=== PATIENT | male | born 1935 | race Caucasian/White ===

== ENCOUNTER → 2016-11-06 19:49 | Outpatient (CLI) | payer MEDICARE, OTHER | END | disposition home or self-care (01) | LOC: D.SLEEP 19:49 | DX: G47.33 Obstructive sleep apnea (adult) (pediatric) (principal) ==

== ENCOUNTER → 2016-11-26 19:21 | Outpatient (CLI) | payer MEDICARE, OTHER | END | disposition home or self-care (01) | LOC: D.SLEEP 19:21 | DX: G47.33 Obstructive sleep apnea (adult) (pediatric) (principal) ==

== ENCOUNTER 2019-11-30 11:03 | Outpatient (CLI) | payer OTHER ==
[~2019-11-30] VITALS: Ht 180.3 cm; Wt 126.4 kg
--- NOTE | ~2019-11-30 | HEMODYNAMI ---
PATIENT:LETHA DEL TORO MEDICAL RECORD: [id number] : 39 LOCATION:DShi[facility] ADMISSION DATE: 11/30/19 Generatedon:11/30/201914:56 Patient name: LETHA DEL TORO Patient #: [id number] SSN: : Date of study: 11/30/2019 Page: Of Hemodynamic Procedure Report Patient Data Patient Demographics Procedure consent was obtained First Name: LETHA Gender: Male Last Name: KATEY : 1935 Patient #: [id number] Age: 84 year(s) Race: Unknown Additional ID: [id number] Contact details Address: [address] [place] [address] [place] State: [place] City: [place] Zip code: [address] Past Medical History Allergies: No known allergies Admission Admission Data Admission Date: 11/30/2019 Admission Time: 11:03 Arrival Date: 11/30/2019 Arrival Time: 0:00 Admit Source: Other Insurance Payor: Private health insurance [facility] #: [id number] Height (in.): 70.87 BSA: 2.42 (m2) Height (cm.): 180 BMI: 38.89 (kg/m2) Weight (lbs.): 277.78 Weight (kg.): 126 Lab Results Lab Result Date: 11/30/2019 Lab Result Time: 0:00 Biochemistry Name Units Result Min Max BUN mg/dl 19 --(----)*- 7 18 Creatinine mg/dl 1.2 --(---*)-- 0.6 1.3 eGFR ml/min 61.89820 *-(----)-- 90 120 NONAFRICAN CBC Name Units Result Min Max Hematocrit % 41.2 -*(----)-- 42 54 Hemoglobin g/dl 13.5 --(*---)-- 13.5 17.5 Procedure Procedure Types Cath Procedure Diagnostic Procedure PPM/ICD Permanent Pacer Generator Exg. Sedation Charges Moderate Sedation up to 15 minutes Procedure Description Procedure Date Procedure Date: 11/30/2019 Procedure Start Time: 14:33 Procedure End Time: 14:55 Procedure Staff Name Function Addison Bolanos MD Performing Physician Gilles Heard MD Assisting physician Gabi Flores RT Scrub Gay Levin RN Nurse Ria Ortiz RN Assistance Representative Jessi Lew RT Monitor Procedure Data Cath Procedure Estimated blood loss: 10 ml Procedure Complications No complications Procedure Medications Medication Administration Route Dosage Oxygen etCO2 Nasal cannula 2 l/min Lidocaine 1% added to field 20 Ancef Irrigation Topical 1 g (1gm/500ml NS) Ancef (1Gm/50ml NS) I.V.P.B 1 g 0.9% NaCl I.V. Versed I.V. 2 mg Fentanyl I.V. 100 mcg Versed I.V. 1 mg Fentanyl I.V. 50 mcg Versed I.V. 1 mg Fentanyl I.V. 50 mcg Hemodynamics Rest BSA: 2.42 (m2) HGB: 13.5 (g/dl) O2 Consumption: Estimated: 271.26 (ml/min) O2 Co nsumption indexed: Estimated:112.09 (ml/min/m) Heart Rate: 65 (bpm) Snapshots Pre Cath Intra NCS Post Cath Vital Signs Time Heart Resp SPO2 etCO2 NIBP (mmHg) Rhythm Pain Sedation Rate (ipm) (%) (mmHg) Status Level (bpm) 14:04:37 65 14 97 29.1 158/94(120) Paced (Missing) 10(A) 14:08:53 79 13 96 25.4 141/80(104) Paced (Missing) 10(A) 14:13:09 65 12 94 28.4 131/79(104) Paced (Missing) 10(A) 14:17:25 65 14 94 13.4 125/77(105) Paced (Missing) 10(A) 14:21:39 65 16 96 29.1 128/83(109) Paced (Missing) 10(A) 14:25:55 65 12 94 1.4 126/81(104) Paced (Missing) 10(A) 14:30:05 65 13 93 0 124/82(101) Paced (Missing) 10(A) 14:34:21 65 14 95 2.2 128/78(97) Paced (Missing) 9(A) 14:38:25 169 17 95 2.2 105/74(83) Paced (Missing) 9(A) 14:42:33 60 19 94 31.4 112/76(101) Paced (Missing) 9(A) 14:47:26 65 18 95 39.6 118/75(89) Paced (Missing) 9(A) 14:51:48 74 17 95 2.2 73/51(62) Paced (Missing) 10(A) Medications Time Medication Route Dose Verified Delivered Reason Notes Effectiv eness by by 13:53:46 Oxygen etCO2 2 Addison Vangieie used for Nasal l/min [facility] Levin RN procedure cannula 13:54:00 Lidocaine added 20ml Addison Campoverde for local 1% to vial [facility] Heard MD anesthetic field x 2 13:54:14 Ancef Topical 1 g Addison Recinosian used for Irrigation [facility] Robles Heard MD procedure (1gm/500ml NS) 13:54:22 Ancef I.V.P.B 1 g Addison Campoverde used for (1Gm/50ml [facility] Heard MD procedure NS) 13:54:34 0.9% NaCl I.V. kvo Addison Rashid Per ml/hr [facility] Robles Levin RN physician 14:30:04 Versed I.V. 2 mg Addison Vencesie for [facility] Robles Levin RN sedation 14:30:11 Fentanyl I.V. 100 Addison Buffie for [facility] [place] [facility] Robles Levin RN sedation 14:37:55 Versed I.V. 1 mg Addison Vencesie for [facility] Robles Levin RN sedation 14:38:00 Fentanyl I.V. 50 Addison Rashid for [facility] Robles Levin RN sedation 14:49:10 Versed I.V. 1 mg Addison Vencesie for St Robles Levin RN sedation 14:49:13 Fentanyl I.V. 50 Addison Vencesie for [facility] Robles Levin RN sedation Procedure Log Time Note 13:45:10 Ria Ortiz RN sent for patient. Start room use. 13:45:35 Informed consent obtained and on chart 13:51:33 Procedure Status Elective Heart Cath (OP). 13:52:17 Time tracking: Regular hours (M-F 7:00 - 5:00) 13:52:19 Plan of Care:Hemodynamics will remain stable., Cardiac rhythm will remain stable., Comfort level will be maintained., Respiratory function will remain adequate., Patient/ family verbilizes understanding of procedure., Procedure tolerated without complication., Recovers from procedure without complications.. 13:53:43 Patient allergic to No known allergies 13:53:46 Oxygen 2 l/min etCO2 Nasal cannula was administered by Gay Levin RN; used for procedure; Verbal order read back and verified. 13:53:50 H&P Date Dictated: 11/22/2019 Within 30 days and on chart., H&P Addendum completed by physician on day of procedure. (MUST COMPLETE FOR ALL OUTPATIENTS). 13:54:00 Lidocaine 1% 20ml vial x 2 added to field was administered by Gilles Heard MD; for local anesthetic; Verbal order read back and verified. 13:54:14 Ancef Irrigation (1gm/500ml NS) 1 g Topical was administered by Gilles Heard MD; used for procedure; Verbal order read back and verified. 13:54:22 Ancef (1Gm/50ml NS) 1 g I.V.P.B was administered by Gilles Heard MD; used for procedure; Verbal order read back and verified. 13:54:34 0.9% NaCl kvo ml/hr I.V. was administered by Gay Levin RN; Per physician; Verbal order read back and verified. 13:54:49 Lab Result : BUN 19 mg/dl 13:54:49 Lab Result : Creatinine 1.2 mg/dl 13:54:49 Lab Result : eGFR NONAFRICAN 61.12330 ml/min 13:54:49 Lab Result : Hemoglobin 13.5 g/dl 13:54:49 Lab Result : Hematocrit 41.2 % 13:56:14 Patient received from Pre/Post Procedure Room to [facility] 3 Alert and oriented. Tansferred to table in Supine position. 13:56:15 Warm blankets applied, and chula hugger turned on for patient comfort. 13:56:15 Correct patient and procedure confirmed by team. 13:56:15 ECG and BP/O2 sat monitors applied to patient. 13:59:58 Patient Height : 70.87 inches 14:00:01 Patient Weight : 277.78 lbs 14:00:06 Pre-procedure instructions explained to patient. 14:00:07 Pre-op teaching completed and patient verbalized understanding. 14:00:08 Family in patients room. 14:00:09 Patient NPO since Midnight. 14:00:11 Is the patient allergic to Iodine/contrast media? No. 14:00:29 Previous problem with sedation/anesthesia? No ? 14:00:30 Snore? Yes 14:00:35 Sleep apnea? Yes 14:00:37 Deviated septum? No 14:00:38 Opens mouth fully? Yes 14:00:40 Sticks out tongue? Yes 14:00:44 Patient diabetic? No. 14:00:49 Airway obstruction? No ? 14:00:54 Is patient on blood thinner?Yes 14:01:18 LAST DOSE OF COUMADIN ON SAT. 11.27.19 14:01:23 Dentures? No ? 14:01:56 Patient pain scale 0/10 ?. 14:02:04 IV patent on arrival in right antecubital with 0.9% NaCl at [facility]. 14:02:10 Lab results completed and on chart. 14:02:16 Left chest area was prepped with chlora-prep and draped in sterile fashion 14:02:17 Alarms reviewed by R. N. 14:02:17 Sharps counted by scrub and verified by R.N. 14:03:23 Medtronic traveling representative WILBERT JORDAN present for procedure. 14:03:27 Vital chart was started 14:03:29 Baseline sample Acquired. 14:03:34 Rhythm: sinus rhythm 14:03:35 Full Disclosure recording started 14:04:13 Use device set MEMO PPM 14:04:15 2-0 Ticron Multipack ([id number]) opened to sterile field. 14:04:15 3-0 Vicryl Single Pack [id number] opened to sterile field. 14:04:15 5-0 Monocryl PS2 [id number] opened to sterile field. 14:04:16 Cautery Tip Applications Tester opened to sterile field. 14:04:19 Cautery Pushbutton Pencil opened to sterile field. 14:07:27 Arrival Date: 11/30/2019 12:00:00 AM 14:07:28 Admit Source: Other 14:07:34 Insurance Payor : Private health insurance 14:12:[address] Generator [id number] opened to sterile field. 14:29:35 --------ALL STOP TIME OUT------ 14:29:36 Final Timeout: patient, procedure, and site verified with staff and physician. All members of the team are in agreement. 14:29:44 Left chest site verified by team. 14::49 Fire Safety Assessment: A--An alcohol-based skin anteseptic being used preoperatively., C--Open oxygen or nitrous oxide is being used., D--An ESU, laser, or fiber-optic light is being used. 14:29:53 Physical assessment completed. ASA score P 2 - A patient with mild systemic disease as per Addison Bolanos MD. 14:29:58 Sedation plan: IV Moderate Sedation Medication:Versed, Fentanyl 14:30:04 Versed 2 mg I.V. was administered by Gay Levin RN; for sedation; Verbal order read back and verified. 14:30:11 Fentanyl 100 mcg I.V. was administered by Gay Levin RN; for sedation; Verbal order read back and verified. 14:32:27 Procedure started. 14:32:54 Quick Combo opened to sterile field. 14:33:15 Pre sharps counted by scrub and verified by RN: Sutures: 7; Sponges: 5; Stick needles: 2; Skin needles: 2; Blade: 1; Cautery: 1 14:33:32 Grounding pad site Left thigh. 14:33:36 Grounding pad site free from injury. 14:33:43 Lidocaine 1% was administered to left subclavicular area by Gilles Heard MD . 14:35:17 Incision made to left subclavicular area. 14:37:14 Generator pocket made/opened. 14:37:55 Versed 1 mg I.V. was administered by Gay Levin RN; for sedation; Verbal order read back and verified. 14:38:00 Fentanyl 50 mcg I.V. was administered by Gay Levin RN; for sedation; Verbal order read back and verified. 14:44:45 PPM Dual was removed.. 14:44:47 Device pocket was irrigated with Ancef. 14:45:32 PPM Dual was attached to lead(s) and inserted into pocket. 14:46:54 Ventricular lead attachment was completed with 2-0 ticron. 14:47:02 Subcutaneous closure was completed with 3-0 vicryl. 14:47:55 Atrial lead attachment was completed with 2-0 ticron. 14:47:59 Generator was sutured in place with 2-0 ticron. 14:48:19 Skin closure was completed with 5-0 monocryl. 14:49:10 Versed 1 mg I.V. was administered by Gay Levin RN; for sedation; Verbal order read back and verified. 14:49:13 Fentanyl 50 mcg I.V. was administered by Gay Levin RN; for sedation; Verbal order read back and verified. 14:51:58 Lt Chest incision was dressed with Mepilex dressing. 14:52:02 Procedure ended.(Physican Out) 14:52:25 Sharps counted by scrub and verified by R.N. 14:52:36 Post-procedure physical assessment completed. ASA score P 2 - A patient with mild systemic disease as per Addison Bolanos MD. 14:52:41 Post procedure rhythm: unchanged. 14:52:45 Estimated blood loss: 10 ml 14:52:47 Post procedure instruction explained to patient.Patient verbalizes understanding. 14:52:48 Patient needs reinforcement of post procedure teaching. 14:53:10 Procedure type changed to Cath procedure, Diagnostic procedure, PPM/ICD, Permanent Pacer Generator Exg., Sedation Charges, Moderate Sedation up to 15 minutes 14:53:16 Procedure Complication : No complications 14:53:22 Operative report dictated upon procedure completion. 14:53:23 See physician's report for complete and final results. 14:53:26 Report given to Pre/Post Procedure Room. 14:53:34 Patient transfered to Pre/Post Procedure Room with Stretcher. 14:55:03 Procedure and supply charges have been captured, reviewed, submitted and are correct. 14:55:14 Procedure ended. 14:55:14 Full Disclosure recording stopped 14:55:22 End room use (Document Last) 14:55:33 End room use (Document Last) 14:55:56 End room use (Document Last) 14:56:19 Vital chart was stopped Device Usage Item Name Manufacture Quantity Catalog Hospital Part Current Mini mal Lot# / Number Charge Number Stock Stock Serial# Code 2-0 Ticron Ethicon 6 [id number] 5 Multipack ([id number]) 3-0 Vicryl Ethicon 1 [id number] [id number] [id number] 5 Single Pack [id number] 5-0 Monocryl Ethicon 1 [id number] [id number] [id number] 5 PS2 [id number] Cautery Tip Microtek 1 [id number] [id number] 137504 5 Applications [employer] Cautery Microtek 1 [id number] 314555 94864 [id number] 5 Pushbutton [employer] Inc[employer] Pencil Medtronic Medtronic 1 [id number] [id number] EXP: Generator 05/02/2021 [id number] [employer] 1 [id number] [id number] [id number] 5 Signature Audit [place] Stage Time Signature Unsigned Intra-Procedure 11/30/2019 Jessi Lew 2:55:33 PM RT(R) Intra-Procedure 11/30/2019 Gay Levin RN 2:55:56 PM Intra-Procedure 11/30/2019 Addison Celis 2:56:17 PM [place] [id number] [place] [id number]
--- NOTE | ~2019-11-30 | OP ---
PATIENT NAME: LETHA DEL TORO MEDICAL RECORD: [id number] :37 LOCATION:D.CAT ADMISSION DATE: SURGEON: GILLES HAMPTON MD DATE OF OPERATION: 11/30/2019 PREOPERATIVE DIAGNOSES: 1. End-of-life pacemaker generator. 2. Atrial fibrillation. 3. Hypertension. POSTOPERATIVE DIAGNOSES: 1. End-of-life pacemaker generator. 2. Atrial fibrillation. 3. Hypertension. PROCEDURE: Left subclavian vein dual lead pacemaker generator exchange. SURGEON: Gilles Hampton MD REPORT OF PROCEDURE: The patient's left chest was prepped and draped in sterile fashion. A 20 mL of 1% lidocaine with epinephrine was infused into the surrounding tissues. The previous incision on the left superior chest was opened up using sharp dissection and electrocautery was used to dissect through the subcutaneous tissues to the indwelling pacemaker. This pacemaker was eviscerated through the wound. The leads were dissected loose until those easily eviscerated through the wound. The patient had wanted a deeper pocket because the pacemaker corner was poking out at the shoulder. I opened up the pocket and extended this inferiorly over the pectoralis musculature. With this new pocket in place, we were able to place the pacemaker generator down deeper on to the chest where it was away from the thin skin of the shoulder. We then disconnected the leads from the indwelling pacemaker and placing the pacemaker on them without complications. The generator was placed into the subcutaneous pouch and sutured to the pectoral fascia using a single interrupted 2-0 TiCron. The wound bed was irrigated out with antibiotic solution. The subcutaneous tissues were reapproximated with interrupted 3-0 Vicryl and the skin was closed with running subcutaneous 5-0 Monocryl. COMPLICATIONS: None. CONDITION: Stable. ANESTHESIA: Local MAC. BLOOD LOSS: Minimal. TRANSINT:[id number] Voice Confirmation ID: [id number] DOCUMENT ID: [id number] OPERATIVE REPORT [id number] KATEYGILLES RODRIGUES MD CC: NATI SINGER MD and MINA ROBERTS MD [id number] DICTATION DATE: 11/30/19 1456 ENGINEERING PRODUCTION LIAISON: 11/30/19 2332 DEP CLI 11/30/19 [facility] [address] [place] [address]
[~2019-11-30 11:03] MED LIST: CENTRUM MEN'S1 EACH PO; FLOMAX0.4 MG PO; JANTOVEN5 MG PO; LIPITOR40 MG PO; MAGNESIUM OXID250 MG PO; OXYBUTYNIN CHLOR5 MG PO; TOPROL XL50 MG PO; VITAMIN B-122500 MCG PO
[2019-11-30 11:31] VITALS: BP 141/81; Ht 180.3 cm; Wt 126.4 kg
[2019-11-30 11:45] LABS: HEMATOCRIT 41.2 % (42.0-54.0); HEMOGLOBIN 13.5 g/dL (13.5-17.5); MCH 29.9 pg (26.0-34.0); MCHC 32.8 g/dL (31.0-37.0); MCV 91.2 fL (80.0-100.0); MEAN PLATELET VOLUME 10.1 fL (7.4-10.4); RBC 4.52 10x6/uL (4.20-6.10); RDW 15.7 % (11.5-14.5); WBC 8.2 10x3/uL (4.8-10.8)
[2019-11-30 11:54] LABS: ANION GAP 10.3 mmol/L (8-16); CALCIUM 8.5 mg/dL (8.5-10.1); CARBON DIOXIDE 30.4 mmol/L (21.0-32.0); CREATININE - SERUM 1.2 mg/dL (0.6-1.3); POTASSIUM - SERUM 4.7 mmol/L (3.5-5.1)
[2019-11-30 12:01] LABS: APTT 31.3 SECONDS (22.8-39.4); INR 1.18 (0.85-1.17); PROTIME 14.9 SECONDS (11.6-15.0)
[2019-11-30] MEDS ORDERED: HYDROCODON-ACE1 EA10 PO (14:58)
--- NOTE | 2019-11-30 15:20 | NUR ---
PT RECEIVED VIA STRETCHER FROM TRANSIT VEHICLE INSPECTOR POST GEN EXCHANGE. PT AWAKE AND ALERT, DENIES PAIN OR DISCOMFORT. MEDIPLEX DRESSING TO U L CHEST, CDI. PT PLACED ON CARDIAC MONITORS . HR PACED AT 61, BP 127/62, RR 13. IV INFUSING VIA ORDERS. SANDWICH AND DRINK SERVED, CALL LIGHT IN REACH. AT BS.
--- NOTE | 2019-11-30 15:45 | NUR ---
PT SITTING UP VISING W . TOLERATED LUNCH AND DRINK W/O NAUSEA. DRESSING TO U CHEST CDI. PT DENIES PAIN OR NEEDS. VSS. CALL LIGHT IN REACH
--- NOTE | 2019-11-30 16:21 | NUR ---
DISCHARGE INSTRUCTIONS REVIEWED W PT AND , BOTH VERBALIZED UNDERSTANDING. L UPPER CHEST DRESSING CDI. IV REMOVED W CATH INTACT, MONITORS REMOVED. PT UP TO DRESS FOR DISCHARGE
--- NOTE | 2019-11-30 16:32 | NUR ---
PT DISCHARGED VIA WC TO WAITING IN PRIVATE VEHICLE. PT HAD ALL BELONGINGS AND DISCHARGE PAPERWORK
== END 2019-11-30 16:30 | disposition home or self-care (01) ==
LOC: D.CATH 11:03
PROVIDERS: ATTEND Internal Medicine Interventional Cardiology
DX: I48.0 Paroxysmal atrial fibrillation (principal); Z45.010 Encounter for checking and testing of cardiac pacemaker pulse generator [battery]; I10 Essential (primary) hypertension; I49.5 Sick sinus syndrome

== ENCOUNTER 2019-12-01 06:50 | Inpatient (IN) | payer OTHER ==
[2019-11-29 12:38] LABS: BASOPHILS 0.4 % (0-2); HEMATOCRIT 41.7 % (42.0-54.0); HEMOGLOBIN 13.7 g/dL (13.5-17.5); IMMATURE GRANULOCYTES 0.1 % (0-5); LYMPHOCYTES 40.9 % (15-50); MCHC 32.9 g/dL (31.0-37.0); MCV 91.2 fL (80.0-100.0); MEAN PLATELET VOLUME 10.1 fL (7.4-10.4); MONOCYTES 12.1 % (2-11); NEUTROPHILS 42.5 % (40-80); PLATELET COUNT 184 10x3/uL (130-400); RBC 4.57 10x6/uL (4.20-6.10); RDW 15.6 % (11.5-14.5); WBC 9.1 10x3/uL (4.8-10.8)
[2019-11-29 12:47] LABS: CALC OSMOLALITY 278 mosm/kg (275-300); CALCIUM 8.7 mg/dL (8.5-10.1); CARBON DIOXIDE 29.5 mmol/L (21.0-32.0); CHLORIDE - SERUM 106 mmol/L (98-107); GLUCOSE 83 mg/dL (74-106); POTASSIUM - SERUM 4.6 mmol/L (3.5-5.1); SODIUM 139 mmol/L (136-145); UREA NITROGEN 17 mg/dL (7-18); eGFR NON AFRICAN AMERICAN 76 mL/min (90-120)
[2019-11-29 12:50] LABS: APTT 31.5 SECONDS (22.8-39.4); INR 1.24 (0.85-1.17); PROTIME 15.5 SECONDS (11.6-15.0)
[2019-12-01] VITALS (11 sets, daily range): BP systolic 112–147; BP diastolic 60–81; BMI 38.9; BMI 38.8
[~2019-12-01] VITALS: Ht 180.3 cm; Wt 126.1 kg
[~2019-12-01 06:50] MED LIST changes: +HYDROCODON-ACE1 EA10 PO
--- NOTE | 2019-12-01 13:41 | NUR ---
1330 KEELEY DRAIN EMPTIED 50ML
--- NOTE | 2019-12-01 13:47 | NUR ---
1345 NO ORDERS NOTED FOR INPATIENT. PROCESSING INSPECTOR CALLED FOR ADMIT ORDERS. DRESSING TO LEFT UPPER CHEST
--- NOTE | 2019-12-01 14:14 | NUR ---
1415 REPORT GIVEN TO [facility]ON [facility] RONIT.
--- NOTE | 2019-12-01 14:58 | NUR ---
1450 WHILE TURNING PT IN BED FROM STRETCHER TO BED PT HAS A DIME SIZE STAGE 2 DIME SIZE OPEN WOUND TO RIGHT BUTTOCKS. NURSE IN ROOM NOTED IT. PT ASSISTED IN BED WITH A SLIDING BOARD CAREFUL NOT TO USE LEFT ARM. PT TOLERATED WELL. TOMPKINS TO GRAVITY AND O2 PER NC 4 LITERS.
--- NOTE | 2019-12-01 23:38 | NUR ---
rec'd walking rounds chge. of shift in bed supine position.abdomen lge and distended.midline drsg.,right and left abd with ghazal drain intact day patent draining antonia colored urine.scd's in place. will continue to monitor for any chges in current status and follow current plan of care
[2019-12-02] VITALS: BP 128/67
[2019-12-02 04:00] VITALS: BP 138/74
--- NOTE | 2019-12-02 08:54 | CN ---
PATIENT NAME:LETHA DEL TORO MEDICAL RECORD: [id number] : 39 LOCATION:D.MS [id number] ADMIT DATE: ACCOUNT: [id number] CONSULTING PHYSICIAN: NATI SINGER MD REFERRING PHYSICIAN: TYREE ARANDA MD DATE OF CONSULTATION: 12/01/2019 REQUESTING PHYSICIAN: Dr. Aranda. REASON FOR CONSULTATION: Medical management. HISTORY OF PRESENT ILLNESS: This is an 84-year-old white male who underwent a right hemicolectomy on 08/26/2019 in [facility] in [place] for colon adenocarcinoma. The patient has had a ventral hernia since then. He was referred to Dr. Aranda. He is now admitted and has undergone an open non-incarcerated ventral incisional hernia repair with mesh earlier today. PAST MEDICAL AND SURGICAL HISTORY: Hypertension, hyperlipidemia, diet-controlled diabetes, paroxysmal atrial fibrillation, Gilbert's syndrome, BPH, overactive bladder, coronary artery disease, iron deficient anemia, adenocarcinoma of the colon. PAST SURGICAL HISTORY: Right hemicolectomy on 08/26/2019, pacemaker placement, tonsillectomy, right inguinal hernia repair, and right total knee arthroplasty. DRUG ALLERGIES: None known. HOME MEDICATIONS: Tamsulosin 0.4 mg once a day. He takes warfarin daily. He takes metoprolol succinate 50 mg one half daily, atorvastatin 40 mg daily, Mag-Ox 500 mg 2 pills twice a day. HABITS: He is a former smoker, no alcohol or drugs. SOCIAL HISTORY: . He lives with his sister here in [facility]. He is retired. FAMILY HISTORY: Father at 82, he had heart disease, hypertension, and CO. Mother at age 90. She had heart disease and stroke. REVIEW OF SYSTEMS: GENERAL: No major weight changes. HEENT: No particular sinus or allergy problems. RESPIRATORY: No history of asthma or emphysema. CARDIAC: He has a history of not significant coronary artery disease. He also has paroxysmal atrial fibrillation, on Coumadin and has sick sinus syndrome with pacemaker. GASTROINTESTINAL: See above with his adenocarcinoma of the colon. GENITOURINARY: He has had BPH and has overactive bladder. MUSCULOSKELETAL: Few arthritic aches and pains. He has had his right knee replaced. NEUROLOGIC: No seizures or migraines. PSYCHIATRIC: Denies depression or melancholia. PHYSICAL EXAMINATION: VITAL SIGNS: Temperature 97.5, pulse 61, respirations 16, blood pressure CONSULT REPORT [id number] LETHA DEL TORO 147/76. GENERAL: He is awake and alert. He does not appear in acute distress. He has TYPESETTER APPRENTICE button at his side. HEENT: Grossly within normal limits. NECK: Supple. No JVD or bruit. HEART: Regular rate and rhythm without murmur. LUNGS: Clear. ABDOMEN: Has a dressing over lower midline from surgery earlier today. EXTREMITIES: No edema. ASSESSMENT: 1. Hypertension. 2. Ventral hernia with repair today with mesh. 3. Paroxysmal atrial fibrillation. 4. Sick sinus syndrome with pacemaker. 5. Long-term use warfarin. PLAN: Warfarin is held for now and we will restart when okay with Dr. Aranda. We will be monitoring his blood pressure and we will monitor throughout his admission in the hospital. Thank you for this consult. TRANSINT:[id number] Voice Confirmation ID: [id number] DOCUMENT ID: [id number] NATI SINGER MD at 0854 CC: [id number] DICTATION DATE: 12/01/19 235 ADULT NEUROLOGIST: 12/02/19 0700 [facility] [address] [place] [address]
[2019-12-02 09:35] VITALS: Ht 180.3 cm; Wt 126.1 kg
[2019-12-02 10:00] VITALS: BP 133/67
[2019-12-02 13:47] VITALS: BP 141/73
[2019-12-02 18:09] VITALS: BP 135/86
--- NOTE | 2019-12-02 19:55 | NUR ---
LYING IN BED. ALERT AND ORIENTED X4. CONFUSED AT TIMES. AT BEDSIDE. RESP IRREG. REFUSES TO WEAR O2, STATES HE DOESNT NEED IT. REFUSES SCDS. KEELEY DRAIN NOTED TO RT ABD WITH BLOODY DRAINAGE IN BULB. MIDLINE DRSG NOTED AND DSRG NOTED TO RT ABD. BRUISE NOTED TO LT FOREARM. TOMPKINS CATH PATENT AND DRAINING TREV URINE. NS @ 30 MLHR INFUSING IN RT HAND. DILAUDID AURICULAR ACUPUNCTURIST DC'D. DENIES PAIN. SR ELEVATED X2. CL IN REACH.
[2019-12-03] VITALS: BP 175/80
--- NOTE | 2019-12-03 02:00 | NUR ---
HAS RESTED WELL SO FAR THIS SHIFT. NO DISTRESS. CL IN REACH.
[2019-12-03 04:00] VITALS: BP 106/65
--- NOTE | 2019-12-03 08:26 | NUR ---
TOMPKINS REMOVED. PATIENT STATED IT WAS LEAKING. EVIDENCE SUGGESTS THAT WAS CORRECT. 9 ML REMOVED FROM BALLOON. TOLERATED WELL. LINENS CHANGED ON BED. FRESH GOWN PROVIDED. UNDERWARE ON. SITTING UP IN CHAIR WITH CHAIR ALARM ON. URINAL IN REACH. CALL LIGHT IN REACH. TABLE IN REACH. NO FURTHER NEEDS AT THIS TIME. WCTM
--- NOTE | 2019-12-03 09:15 | MORECARE ---
CASE MANAGEMENT DISCHARGE SUMMARY PATIENT: LETHA DEL TORO UNIT: [id number] ADM DATE: 12/01/19 AGE: 84 : 37 SEX: M ROOM/BED: D.2208 AUTHOR: SHARRON,DOC PHYSICIAN: REFERRING PHYSICIAN: TYREE ARANDA MD DATE OF SERVICE: 12/03/19 Discharge Plan Patient Name: LETHA DEL TORO Facility: [facility]:[place] : 1935 Planned Disposition: Home or Self Care Anticipated Discharge Date: Discharge Date: Expected LOS: Initial Reviewer: [email or web address] Initial Review Date: 12/02/2019 Generated: 12/03/19 10:14 am Comments DCP- Discharge Planning Updated by [email or web address]: Tameka Packer on 12/03/19 8:[address] Patient Name: LETHA DEL TORO Admission Status: Elective Accout number: [id number] Admission Date: 12-01-2019 : 1935 Admission Diagnosis: Attending: TYREE ARANDA Current LOS: 2 Anticipated DC Date: Planned Disposition: Home or Self Care Primary Insurance: [employer]) Discharge Planning Comments: CM met with patient to complete initial dc planning assessment. CM educated patient on the CM role and verbal consent given by patient to complete assessment. Patient lives at home with his sister where he is independent with his care. At discharge patient plans to return home and feels this is a safe discharge. CM discussed availability of home health, rehab services, and medical equipment. 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 [facility] served and explained. Patient denied known discharge needs at this time. CM will continue to follow and will assist as needed with dc plans/needs. Broadcast Producer: Tameka Packer DCPIA - Discharge Planning Initial Assessment Updated by [email or web address]: Tameka Packer on 12/03/19 9:11 am * Is the patient Alert and Oriented? Yes * How many steps to enter\exit or inside your home? * PCP LUCRECIA * [facility]acy [facility] * Preadmission Environment Home with Family * ADLs Independent * Equipment Cane CPAP Other * Other Equipment INR MACHINE * List name and contact numbers for known caregivers / representatives who currently or will assist patient after discharge: MARIN (SISTER) [phone] * Verbal permission to speak to the caregivers and representatives has been obtained from the patient. N/A * Community resources currently utilized None * Additional services required to return to the preadmission environment? No * Can the patient safely return to the preadmission environment? Yes * Has this patient been hospitalized within the prior 30 days at any hospital? No Coverage Notice Reviewer: [email or web address] Mauro Packer Notice Issued Date-Time: 12/03/2019 8:20 Notice Type: IM Discharge Notice Notice Delivered To: Patient Relationship to Patient: Customer Experience Manager Name: Delivery Method: HAND - Hand Delivered Tila Days: Prior Verbal Notification: Recipient Understood Notice: Yes Recipient Signature: Yes Med Rec Note Co-signed by Attending: Coverage Notice Comment: Patient Name: LETHA DEL TORO Page 14280 at 0915 All edits/amendments must be made on the electronic document DICTATION DATE: 12/03/19913 PRINT GRAPHIC DESIGNER: TREVOR 12/03/19913 RPT#: [id number] DC DATE: STATUS: ADM IN [facility] [address] [place] [address] END OF REPORT
[2019-12-03 09:30] VITALS: BP 188/99
[2019-12-03 11:31] LABS: BASOPHILS 0.1 % (0-2); EOSINOPHILS 0.6 % (0-7); HEMATOCRIT 40.9 % (42.0-54.0); IMMATURE GRANULOCYTES 0.4 % (0-5); LYMPHOCYTES 17.8 % (15-50); MCH 29.8 pg (26.0-34.0); MCHC 31.8 g/dL (31.0-37.0); MCV 93.8 fL (80.0-100.0); MEAN PLATELET VOLUME 10.3 fL (7.4-10.4); MONOCYTES 13.8 % (2-11); NEUTROPHILS 67.3 % (40-80); PLATELET COUNT 175 10x3/uL (130-400); RBC 4.36 10x6/uL (4.20-6.10); RDW 16.5 % (11.5-14.5); WBC 10.6 10x3/uL (4.8-10.8)
[2019-12-03 11:37] LABS: ANION GAP 9.9 mmol/L (8-16); CALCIUM 8.2 mg/dL (8.5-10.1); CARBON DIOXIDE 27.5 mmol/L (21.0-32.0); CREATININE - SERUM 1.2 mg/dL (0.6-1.3); POTASSIUM - SERUM 4.4 mmol/L (3.5-5.1)
[2019-12-03 13:50] VITALS: BP 168/94
--- NOTE | 2019-12-03 15:03 | OP ---
PATIENT NAME: LETHA DEL TORO MEDICAL RECORD: [id number] :39 LOCATION:D.MS [address] ADMISSION DATE:12/01/19 SURGEON: AIDEN ARANDA MD DATE OF OPERATION: 12/01/2019 PREOPERATIVE DIAGNOSIS: Large symptomatic ventral incisional hernia. POSTOPERATIVE DIAGNOSES: Large symptomatic non-incarcerated ventral incisional hernia with inability to approximate the rectus muscles in the midline without utilizing the bilateral component separation technique. PROCEDURE: Open large non-incarcerated ventral incisional hernia repair with polypropylene mesh utilizing the bilateral component separation technique. The myofascial release on the right was 16.0 cm and on the left was 15 cm. SURGEON: Aiden Aranda MD BRICK MACHINE OPERATOR: None. BLOOD LOSS: Please see the anesthesia sheet. COMPLICATIONS: None. The risks, possible complications, and alternatives to the procedure were explained to the patient. He elects to proceed. The discussion specifically included, but was not limited to, bleeding requiring emergency reoperation, infection, intestinal injury. OPERATIVE COURSE: The patient was conveyed to the operating room electively on 12/01/2019. General anesthesia was induced by anesthesia staff. The abdomen was sterilely prepped and draped. Through the use of double curvilinear incisions, I excised the skin and subcutaneous tissue around the patient's midline scar. I did this as there was good bit of redundant skin and subcutaneous tissue, which was going to provide for a closure that would predispose the patient to skin edge wound necrosis. I entered the hernia sac sharply. There were no incarcerated contents. I excised portions of the hernia sac. In fact, I excised almost all of this very large hernia sac. I ran the colon, I ran the small bowel from the ligament of Treitz to the ileocecal valve. I examined the liver and noted no masses and specifically no palpable evidence of a metastatic malignant neoplasm. The rectus muscles were by about 9 inches. I incised the peritoneum around the hernia defect. I incised around the hernia defect and dissected between the posterior fascia and the rectus muscles. I then closed the posterior fascia with running #1 Vicryls. I then tried to reapproximate the rectus muscles in the midline and was unable to do so. I went to the right side and created a sagittal incision from the right costal margin to the anterior superior iliac spine. I dissected down through skin and subcutaneous tissue to the external oblique muscle. I incised the external oblique muscle. I was able to insert my fingers underneath the external oblique muscle, and utilizing electrocautery, I performed a myofascial release, first superiorly and then inferiorly. I then performed some finger dissection underneath the external oblique muscle freeing it up of the internal oblique muscle. I then took OPERATIVE REPORT [id number] LETHA DEL TORO and the length of the myofascial release is listed above. I then packed a laparotomy sponge in the wound. I then returned to the midline. I tried to get the rectus muscles to approximate in the midline without tension and I was unable to do so. Therefore, a bilateral component separation technique was indicated rather than just a unilateral technique. I went around to the left side. A sagittal incision was accomplished between the anterior superior iliac spine and the left costal margin. I dissected down through the skin and subcutaneous tissue to the external oblique muscle. I incised the external oblique muscle. I was then able to insert my fingers underneath the external oblique muscle and performed a myofascial release with electrocautery first in the cephalad and caudad direction. Utilizing some blunt finger dissection, I was able to free up the external oblique muscle from the underlying internal oblique muscle. The length of the myofascial release is listed above. I packed a laparotomy sponge in the wound. I then returned to the midline. I was now able to reapproximate the rectus muscles in the midline without tension. I wanted to perform an extraperitoneal submuscular repair and elected to do this with polypropylene mesh. A large portion of mesh was utilized. This was an oval mesh that I custom cut to size of defect. It was about 20 cm in cephalad caudad dimension and about 14 cm in the lateral dimension. I cut the mesh. I placed it on the posterior fascia. I used 1 tacking of a disposable tacker. I then fixated the mesh in the proper orientation. Rectus muscle and fascia were then approximated the midline with running looped #1 PDS from the cephalad and caudad dimension. I incorporate a good portion of the middle of this mesh with these sutures. This anchored the mesh into the retro-muscular space. I over ran the fascial closure with running #1 Vicryls. I brought a 10-Pakistani round fully fluted drain out through a stab incision in the right periumbilical area. The drain was placed in subcutaneous cavity. In the midline, I closed the subdermis was with interrupted 3-0 Vicryl suture. The skin was approximated with metallic clips as well as with few interposed 2-0 nylons in a vertical mattress fashion. I removed both laparotomy pads from the lateral incision. Lateral incisions were both closed with interrupted 3-0 Vicryl for the deep dermis as well as metallic clips for the skin. Sterile dressings were applied. The patient was then conveyed to post-anesthesia care unit where he was in stable condition. I anticipate he will have some degree of ileus and therefore, he will require some time in the hospital. Additionally, his incision is large enough where he will require intravenous narcotic analgesia. TRANSINT:[id number] Voice Confirmation ID: [id number] DOCUMENT ID: [id number] OPERATIVE REPORT [id number] LETHA DEL TORO, AIDEN ALMODOVAR at 1503 CC: [id number] DICTATION DATE: 12/02/191820 FINANCIAL DEVELOPER: 12/03/19 0307 ADM IN [facility] [address] [place] [address]
[2019-12-03 17:37] VITALS: BP 155/87
--- NOTE | 2019-12-03 19:10 | NUR ---
BEDSIDE REPORT RECEIVED FROM DAY SHIFT, PT CARE ASSUMED. INTRODUCED SELF AND WROTE NAME ON BOARD. PT SITTING UP IN CHAIR AT BEDSIDE, WATCHING TV, AAOX4. DENIES ANY NEEDS AT THIS TIME. BED IN LOWEST POSITION, CALL LIGHT WITHIN REACH, GIANCARLO ALARM ON AND FUNCTIONING. WILL CONTINUE TO MONITOR.
[2019-12-03 20:00] VITALS: BP 145/87
[2019-12-04] VITALS: BP 162/93
[2019-12-04 08:48] VITALS: BP 148/82
[2019-12-04 13:01] VITALS: BP 150/85
--- NOTE | 2019-12-04 13:32 | NUR ---
RESTING IN BED, NO DISTRESS NOTED, EMESIS THIS AM DURING MEAL, DRESSINGS TO ABD DRY AND INTACT, IV INFUSING
--- NOTE | 2019-12-04 14:06 | NUR ---
DRESSING CHANGED TO 3 ABD WOUNDS, NO S/S OF INFECTION, CONT TO MONITOR
[2019-12-04 16:34] VITALS: BP 161/89
--- NOTE | 2019-12-04 18:28 | NUR ---
REFUSED SUPPER TRAY, STATES THAT HE FEELS SOME NAUSEA, RESTING ON LEFT SIDE IN BED, IV INFUSING
[2019-12-04 19:46] VITALS: BP 123/62
--- NOTE | 2019-12-04 20:30 | NUR ---
AWAKE,ALERT.NO COMPLAINTS VOICED.IV INFUSING TO RIGHT HAND WITHOUT REDNESS OR EDEMA NOTED.DRESSING X 3 TO ABD INTACT WITHOUT DRAINAGE NOTED. CL IN REACH
[2019-12-05] VITALS: BP 166/82
--- NOTE | 2019-12-05 03:00 | NUR ---
I have reviewed this patient and I concur with the Shift Assessment completed by the Licensed Practical Nurse today this shift.
[2019-12-05 04:00] VITALS: BP 145/67
[2019-12-05 07:11] LABS: INR 1.35 (0.85-1.17); PROTIME 16.6 SECONDS (11.6-15.0)
[2019-12-05 07:52] VITALS: BP 153/75
--- NOTE | 2019-12-05 11:00 | NUR ---
RESTING IN BED, NO DISTRESS NOTED, ABD DRESSING DRY AND INTACT, PT CONT TO C/O NOT HAVING AN APPETITE
[2019-12-05 11:54] VITALS: BP 110/76
[2019-12-05 16:07] VITALS: BP 127/52
--- NOTE | 2019-12-05 19:10 | NUR ---
BEDSIDE REPORT RECEIVED FROM DAY SHIFT, PT CARE ASSUMED. WROTE NAME ON BOARD. PT SITTING UP IN CHAIR AT BEDSIDE, WATCHING TV, AAOX4. DENIES ANY NEEDS AT THIS TIME. BED IN LOWEST POSITION, CALL LIGHT AND URINAL WITHIN REACH. WILL CONTINUE TO MONITOR.
[2019-12-05 20:00] VITALS: BP 136/68
[2019-12-06] VITALS: BP 109/58
[2019-12-06 04:00] VITALS: BP 158/54
[2019-12-06 05:07] LABS: INR 1.98 (0.85-1.17); PROTIME 22.2 SECONDS (11.6-15.0)
[2019-12-06 05:10] LABS: ANION GAP 8.6 mmol/L (8-16); CARBON DIOXIDE 30.4 mmol/L (21.0-32.0); CREATININE - SERUM 1.1 mg/dL (0.6-1.3)
[2019-12-06 08:40] VITALS: BP 163/76
--- NOTE | 2019-12-06 10:05 | NUR ---
PT ON CL IN RESTROOM, HAD BM AND UNABLE TO MAKE IT TO RESTROOM IN TIME. PT STATED HE VOMITED AFTER HE ATE AND USUALLY DOES WHEN HE EATS TOO MUCH. PT ASKED FOR ORANGE SLICES, MILK AND GRAPE JUICE AND STATED HE IS ABLE TO KEEP THESE ITEMS DOWN. PT HAS DRESSINGS ON ABDOMEN, ALL CDI, NO OTHER NEEDS VOICED, CONTINUE WITH PLAN OF CARE
--- NOTE | 2019-12-06 11:25 | NUR ---
I have reviewed this patient and I concur with the Shift Assessment completed by the Licensed Practical Nurse today this shift.
[2019-12-06 12:12] VITALS: BP 171/81
--- NOTE | 2019-12-06 14:15 | NUR ---
PT SITTING UP IN CHAIR, HAS NOT TOUCHED LUNCH STATED STILL NAUSEOUS AND VOMITING, ADMINISTERED SCHEDULED MEDS WELL PRN MEDICATION FOR NAUSEA. AFTER ADMINISTERING PT STATED " MOVE!" PT STARTED TO THROW UP IN EMESIS BAG AND FILLED IT UP HALF FULL OF YELLOWISH GREEN LIQUID. WILL READMINISTER COUMADIN AND CONTINUE WITH PLAN OF CARE
[2019-12-06 16:01] VITALS: BP 145/77
--- NOTE | 2019-12-06 17:32 | NUR ---
PER ORDERS, PLACED NGT TO PT LT NARE, IST ATTEMPT TUBING GOT COILED IN BACK OF PT THROAT, LET PT REST AND TRIED AGAIN AND WAS SUCCESSFUL. GOT OUT 300CC IMMEDIATELY. ORDERED STAT KUB FOR PLACEMENT. CONTINUE WITH PLAN OF CARE
[2019-12-06 20:00] VITALS: BP 126/65
--- NOTE | 2019-12-06 20:00 | NUR ---
PT SITTING UP IN BEDSIDE CHAIR WITHOUT DISTRESS, AOX4. SISTER AT BEDSIDE. NGT TO LEFT NARE TO LIS. IV RIGHT HAND INFUSING NS @ 100. LIGHT GREEN DRAINAGE IN SUCTION CANISTER. PT STATES NO NAUSEA AT THIS TIME. ABD TENDER TO TOUCH. BOWELS HYPOACTIVE X4. ASSISTED PT ON AND OFF BEDPAN. HAD BM 200ML GREEN LIQUID. DENIES OTHER NEEDS. CL IN REACH, WILL CTM
[2019-12-07] VITALS: BP 129/68
[2019-12-07 04:00] VITALS: BP 147/71
--- NOTE | 2019-12-07 07:00 | NUR ---
PT RESTING IN BED WITH HOB ELEVATED. ASSISTED PT WITH URINAL AT THIS TIME. PT DENIES PAIN, N/V AT THIS TIME. NG TUBE TO LEFT NARE WITH THICK YELLOW/GREEN DRAINAGE NOTED. INCISIONS X 3 TO ABDOMEN C/D/I. DENIES FURTHER NEEDS AT THIS TIME. CL WITHIN REACH. ENCOURAGED TO CALL WITH NEEDS. CONTINUE POC
[2019-12-07 09:11] VITALS: BP 188/88
--- NOTE | 2019-12-07 13:15 | NUR ---
CONTACTED DR. ARANDA PER PT REQUEST TO DISCUSS DIET. DR. ARANDA VOICED OK FOR ICE CHIPS AND POPSICLES, LEAVING NG TUBE IN PLACE FOR TIME. EDUCATED PT REGARDING MD ORDERS. PT VOICES UNDERSTANDING.
[2019-12-07 13:31] VITALS: BP 161/90
--- NOTE | 2019-12-07 13:51 | NUR ---
PT ASSISTED FROM BSC TO BED. LARGE AMOUNT OF DARK GREEN AND QUAN LOOSE BM NOTED. PT TRANSFERS WELL WITH LITTLE STAND BY ASSIST. NG TUBE TO LEFT NARE REMAINS INTACT. PT MAURICIO WELL
[2019-12-07 18:08] VITALS: BP 155/77
--- NOTE | 2019-12-07 19:20 | NUR ---
LYING IN BED. ALERT AND ORIENTED X4. INCONT OF B/B. DIARRHEA NOTED. ASSISTED UP TO BR AT THIS TIME. PADS ON BED CHANGED. RESP IRREG. O2 @ 2L/NC. AMB WITH ASSIST X1. GAIT IS UNSTEADY. INCISION X4 NOTED TO ABD WITH DRSGS C/D/I. EDEMA NOTED TO BLE. NS @ 100 ML/HR INFUSING IN RT HAND. ASSISTED BACK TO BED. BED ALARM ON FOR PT SAFETY.
[2019-12-07 20:00] VITALS: BP 146/60
[2019-12-08] VITALS: BP 137/71
--- NOTE | 2019-12-08 01:01 | NUR ---
LYING IN BED. AWAKE. NO DISTRESS. BED ALARM ON. CL IN REACH.
[2019-12-08 04:00] VITALS: BP 160/69
--- NOTE | 2019-12-08 04:00 | NUR ---
SITTING UP IN CHAIR AT BEDSIDE. HASNT SLEPT MUCH TONIGHT. UP TO BATHROOM FOR BM SEVERAL TIMES. IRRITABLE. DEMANDING THAT STAFF BRING HIM A BANANA AND 2 CARTONS OF MILK. ATTEMPTED TO EXPLAIN TO PT THAT HE IS ON A CLEAR LIQUID DIET BUT ARGUES WITH STAFF AND DOESNT UNDERSTAND RATIONALE. INSTRUCTED PT TO DISCUSS WITH SURGEON.
[2019-12-08 05:31] LABS: INR 3.58 (0.85-1.17)
[2019-12-08 05:34] LABS: CALCIUM 7.8 mg/dL (8.5-10.1); CARBON DIOXIDE 29.4 mmol/L (21.0-32.0); CREATININE - SERUM 1.1 mg/dL (0.6-1.3); POTASSIUM - SERUM 3.4 mmol/L (3.5-5.1)
[2019-12-08 09:53] VITALS: BP 168/73
--- NOTE | 2019-12-08 10:28 | NUR ---
NUTRITION F/U DIET ADVANCED TO FULL LIQUID, PT REFUSED BREAKFAST THIS AM. WILL CONTINUE TO PROVIDE DIET ORDERED, MONITOR PO INTAKE. RD FOLLOWING
--- NOTE | 2019-12-08 12:50 | NUR ---
PATIENT TOLERATED FULL LIQUIDS WITH NO PROBLEMS AT THIS TIME.
[2019-12-08 13:11] VITALS: BP 161/83
[2019-12-08 17:02] VITALS: BP 158/77
--- NOTE | 2019-12-08 18:50 | NUR ---
PATIENT IN CHAIR WITH IV INTACT. NO COMPLAINTS OR SIGNS OF DISTRESS. CALL LIGHT WITHIN REACH.
--- NOTE | 2019-12-08 19:30 | NUR ---
PT SITTING UP IN BED WITHOUT DISTRESS, AOX4. DENIES PAIN OR NAUSEA. TOLERATED DIET. DENIES NEEDS. CL IN REACH, WILL CTM
[2019-12-08 20:00] VITALS: BP 131/68
[2019-12-09] VITALS: BP 121/72
[2019-12-09 04:00] VITALS: BP 138/71
[2019-12-09 09:34] VITALS: BP 141/71
[2019-12-09 09:34] LABS: INR 3.05 (0.85-1.17)
--- NOTE | 2019-12-09 11:41 | NUR ---
PATIENT GETTING UP TO SHOWER WITH SCHEDULING MANAGER ASSISTANCE.
--- NOTE | 2019-12-09 11:43 | MORECARE ---
CASE MANAGEMENT DISCHARGE SUMMARY PATIENT: LETHA DEL TORO UNIT: [id number] ADM DATE: 12/01/19 AGE: 84 : 37 SEX: M ROOM/BED: D.2208 AUTHOR: ANIKA MCDERMOTT PHYSICIAN: REFERRING PHYSICIAN: TYREE ARANDA MD DATE OF SERVICE: 12/09/19 Discharge Plan Patient Name: LETHA DEL TORO Facility: [facility]:[place] : 1935 Planned Disposition: Home or Self Care Anticipated Discharge Date: Discharge Date: Expected LOS: Initial Reviewer: [email or web address] Initial Review Date: 12/02/2019 Generated: 12/09/19 12:42 pm Comments DCP- Discharge Planning Updated by [id number]: Tameka Packer on 12/09/19 10:[address] Patient discharging home today. His sister will be his marine engine driver and he also lives with her. IMM served and explained. Signed copy placed on chart. CM will continue to follow and assist as needed DCP- Discharge Planning Updated by [email or web address]: Tameka Packer on 12/03/19 8:[address] Patient Name: LETHA DEL TORO Admission Status: Elective Accout number: [id number] Admission Date: 12-01-2019 : 1935 Admission Diagnosis: Attending: TYREE ARANDA Current LOS: 2 Anticipated DC Date: Planned Disposition: Home or Self Care Primary Insurance: [facility] Discharge Planning Comments: CM met with patient to complete initial dc planning assessment. CM educated patient on the CM role and verbal consent given by patient to complete assessment. Patient lives at home with his sister where he is independent with his care. At discharge patient plans to return home and feels this is a safe discharge. CM discussed availability of home health, rehab services, and medical equipment. 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 IMM served and explained. Patient denied known discharge needs at this time. CM will continue to follow and will assist as needed with dc plans/needs. Gas Engine Operator: Tameka Packer DCPIA - Discharge Planning Initial Assessment Updated by [email or web address]: Tameka Packer on 12/03/19 9:11 am * Is the patient Alert and Oriented? Yes * How many steps to enter\exit or inside your home? * PCP LUCRECIA * [facility]acy [facility] * Preadmission Environment Home with Family * ADLs Independent * Equipment Cane CPAP Other * Other Equipment INR MACHINE * List name and contact numbers for known caregivers / representatives who currently or will assist patient after discharge: MARIN (SISTER) [phone] * Verbal permission to speak to the caregivers and representatives has been obtained from the patient. N/A * Community resources currently utilized None * Additional services required to return to the preadmission environment? No * Can the patient safely return to the preadmission environment? Yes * Has this patient been hospitalized within the prior 30 days at any hospital? No Coverage Notice Reviewer: [id number] Mauro Packer Notice Issued Date-Time: 12/03/2019 8:20 Notice Type: IM Discharge Notice Notice Delivered To: Patient Relationship to Patient: Entry Specialist Name: Delivery Method: HAND - Hand Delivered Tila Days: Prior Verbal Notification: Recipient Understood Notice: Yes Recipient Signature: Yes Med Rec Note Co-signed by Attending: Coverage Notice Comment: Reviewer: [email or web address] Mauro Packer Notice Issued Date-Time: 12/09/2019 11:30 Notice Type: IM Discharge Notice Notice Delivered To: Patient Relationship to Patient: Entry Specialist Name: Delivery Method: HAND - Hand Delivered Tila Days: Prior Verbal Notification: Recipient Understood Notice: Yes Recipient Signature: Yes Med Rec Note Co-signed by Attending: Coverage Notice Comment: Last DP export: 12/03/19 8:14 a Patient Name: LETHA DEL TORO Page [id number] at 1143 All edits/amendments must be made on the electronic document DICTATION DATE: 12/09/19 1142 OUTBOARD MOTOR TESTER: TREVOR 12/09/19 1142 RPT#: [id number] DC DATE: STATUS: ADM IN [facility] [address] [place] [address] END OF REPORT
[2019-12-09] MEDS ORDERED: HYDROCODON-ACE1 EAC7 PO (12:04)
[2019-12-09] MEDS ORDERED: COLACE100 MG PO (12:04)
[2019-12-09 13:04] VITALS: BP 119/76
--- NOTE | 2019-12-09 14:05 | NUR ---
PATIENT UP TO SHOWER AT THIS TIME WITH ASSIST BY NURSE. IV REMOVED CATH TIP INTACT. GOING TO BE DC'D AFTER SHOWER.
--- NOTE | 2019-12-10 14:50 | MORECARE ---
CASE MANAGEMENT DISCHARGE SUMMARY PATIENT: LETHA EDL TORO UNIT: [id number] ADM DATE: 12/01/19 AGE: 84 : 37 SEX: M ROOM/BED: D.2208 AUTHOR: SHARRONDOC PHYSICIAN: REFERRING PHYSICIAN: TYREE ARANDA MD DATE OF SERVICE: 12/10/19 Discharge Plan Patient Name: LETHA DEL TORO Facility: [facility]:[place] : 1935 Planned Disposition: Home or Self Care Anticipated Discharge Date: Discharge Date: 12/09/2019 Expected LOS: 0 Initial Reviewer: [email or web address] Initial Review Date: 12/02/2019 Generated: 12/10/19 3:50 pm Comments DCP- Discharge Planning Updated by [email or web address]: Tameka Packer on 12/09/19 10:[address] Patient discharging home today. His sister will be his courier driver and he also lives with her. IMM served and explained. Signed copy placed on chart. CM will continue to follow and assist as needed DCP- Discharge Planning Updated by [id number]: Tameka Packer on 12/03/19 8:[address] Patient Name: LETHA DEL TORO Admission Status: Elective Accout number: [id number] Admission Date: 12-01-2019 : 1935 Admission Diagnosis: Attending: TYREE ARANDA Current LOS: 2 Anticipated DC Date: Planned Disposition: Home or Self Care [facility] Discharge Planning Comments: CM met with patient to complete initial dc planning assessment. CM educated patient on the CM role and verbal consent given by patient to complete assessment. Patient lives at home with his sister where he is independent with his care. At discharge patient plans to return home and feels this is a safe discharge. CM discussed availability of home health, rehab services, and medical equipment. 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 IMM served and explained. Patient denied known discharge needs at this time. CM will continue to follow and will assist as needed with dc plans/needs. Transportation Escort: Tameka Packer DCPIA - Discharge Planning Initial Assessment Updated by [email or web address]: Tameka Packer on 12/03/19 9:11 am * Is the patient Alert and Oriented? Yes * How many steps to enter\exit or inside your home? * PCP LUCRECIA * [facility] * Preadmission Environment Home with Family * ADLs Independent * Equipment Cane CPAP Other * Other Equipment INR MACHINE * List name and contact numbers for known caregivers / representatives who currently or will assist patient after discharge: MARIN (SISTER) [phone] * Verbal permission to speak to the caregivers and representatives has been obtained from the patient. N/A * Community resources currently utilized None * Additional services required to return to the preadmission environment? No * Can the patient safely return to the preadmission environment? Yes * Has this patient been hospitalized within the prior 30 days at any hospital? No Coverage Notice Reviewer: [email or web address] Mauro Packer Notice Issued Date-Time: 12/03/2019 8:20 Notice Type: IM Discharge Notice Notice Delivered To: Patient Relationship to Patient: Compression Molding Machine Operator Name: Delivery Method: HAND - Hand Delivered Tila Days: Prior Verbal Notification: Recipient Understood Notice: Yes Recipient Signature: Yes Med Rec Note Co-signed by Attending: Coverage Notice Comment: Reviewer: [email or web address] Mauro Packer Notice Issued Date-Time: 12/09/2019 11:30 Notice Type: IM Discharge Notice Notice Delivered To: Patient Relationship to Patient: Compression Molding Machine Operator Name: Delivery Method: HAND - Hand Delivered Tila Days: Prior Verbal Notification: Recipient Understood Notice: Yes Recipient Signature: Yes Med Rec Note Co-signed by Attending: Coverage Notice Comment: Last DP export: 12/09/19 10:42 am Patient Name: LETHA DEL TORO Page 13822 at 1450 All edits/amendments must be made on the electronic document DICTATION DATE: 12/10/19 1450 FABRICATION SUPERVISOR: TREVOR 12/10/19 1450 RPT#: [id number] DC DATE:12/09/19 STATUS: DIS IN [facility] [address] [place] [address] END OF REPORT
--- NOTE | 2019-12-10 17:59 | DS ---
PATIENT:LETHA DEL TORO :39 MEDICAL RECORD: [id number] DISCHARGE SUMMARY ADMISSION DATE: 12/01/19 DISCHARGE DATE: 12/09/19 PRINCIPAL DIAGNOSIS: Symptomatic large non-incarcerated ventral incisional hernia. PRINCIPAL PROCEDURE: Open non-incarcerated ventral incisional hernia repair with mesh utilizing the bilateral component separation technique. OTHER DIAGNOSES: Include hypertension, postoperative ileus, hyperlipidemia, Guillain-[place] syndrome, coronary artery disease, iron-deficiency anemia, history of adenocarcinoma of the colon, history of overactive bladder, BPH, paroxysmal atrial fibrillation, diet-controlled diabetes. HOSPITAL COURSE: The patient underwent the above operative procedure. Postoperatively, the patient had a prolonged ileus. This resolved. His diet was advanced. He is being dismissed home. Discharge instructions were given to the patient verbally by me. He was instructed to call for any severe nausea, vomiting, fever, or chills. His incisions looked good at the time of dismissal. He is tolerating a regular diet. He was having bowel function. He is not to do any lifting or straining for 3 weeks. He is to keep his pacemaker generator incision clean and dry for a total of 3 weeks after it was placed. He is being dismissed home on [place] as well as [place]. I will see him in the office in 1 week. TRANSINT:[id number] Voice Confirmation ID: [id number] DOCUMENT ID: [id number] TYREE ARANDA MD at 1759 CC: [id number] DICTATION DATE: 12/09/19 1024 COLOR FINISHER: 12/10/19 1000 DIS IN 12/09/19 [place] [id number] [place] [id number]
== END 2019-12-09 15:00 | disposition home or self-care (01) | DRG 354 ==
LOC: D.OPS 06:50 → D.PAN 09:00 → D.MS 13:44 → D.OPS 14:49 → D.MS 14:49
PROVIDERS: Anesthesiology; Family Medicine; ADMIT Surgery; ATTEND Surgery
PROC: 0WUF0JZ Supplement Abdominal Wall with Synthetic Substitute, Open Approach (ICD-10-PCS; principal; 2019-12-01 09:00)
DX: K43.2 Incisional hernia without obstruction or gangrene (principal); K56.7 Ileus, unspecified; I10 Essential (primary) hypertension; E11.9 Type 2 diabetes mellitus without complications; E78.5 Hyperlipidemia, unspecified; I25.10 Atherosclerotic heart disease of native coronary artery without angina pectoris; I48.0 Paroxysmal atrial fibrillation; I49.5 Sick sinus syndrome; Z95.0 Presence of cardiac pacemaker; Z79.01 Long term (current) use of anticoagulants

== ENCOUNTER 2020-12-22 07:10 | Day surgery (SDC) | payer OTHER ==
[2020-12-20 12:38] LABS: CALC OSMOLALITY 281 mosm/kg (275-300); CALCIUM 8.8 mg/dL (8.5-10.1); CARBON DIOXIDE 28.1 mmol/L (21.0-32.0); CHLORIDE - SERUM 103 mmol/L (98-107); GLUCOSE 108 mg/dL (74-106); POTASSIUM - SERUM 4.7 mmol/L (3.5-5.1); SODIUM 139 mmol/L (136-145); UREA NITROGEN 21 mg/dL (7-18); eGFR NON AFRICAN AMERICAN 76 mL/min (90-120)
[2020-12-20 13:08] LABS: BASOPHILS 0.4 % (0-2); HEMATOCRIT 46.7 % (42.0-54.0); HEMOGLOBIN 15.4 g/dL (13.5-17.5); IMMATURE GRANULOCYTES 0.1 % (0-5); LYMPHOCYTE ABS# 2.53 10x3/uL (1.32-3.57); LYMPHOCYTES 31.3 % (15-50); MCH 30.9 pg (26.0-34.0); MCV 93.8 fL (80.0-100.0); MEAN PLATELET VOLUME 9.9 fL (7.4-10.4); MONOCYTES 12.3 % (2-11); NEUTROPHIL ABS# 4.12 10x3/uL (1.78-5.38); NEUTROPHILS 50.9 % (40-80); PLATELET COUNT 157 10x3/uL (130-400); RBC 4.98 10x6/uL (4.20-6.10); RDW 13.9 % (11.5-14.5); WBC 8.1 10x3/uL (4.8-10.8)
[2020-12-20 15:39] LABS: APTT 24.7 SECONDS (22.8-39.4); INR 1.42 (0.85-1.17); PROTIME 16.1 SECONDS (11.6-15.0)
[~2020-12-22] VITALS: Ht 180.3 cm; Wt 129.3 kg
[~2020-12-22 07:10] MED LIST changes: +ASCORBIC ACID500 MG PO; +COLACE100 MG PO; +GALZIN25 MG PO; +HYDROCODON-ACE1 EAC7 PO; +VITAMIN D325 MC1 PO
[2020-12-22 07:26] VITALS: Ht 180.3 cm; Wt 129.3 kg
--- NOTE | 2020-12-22 15:33 | OP ---
PATIENT NAME: LETHA FIGUEREDO MEDICAL RECORD: [id number] :39 LOCATION:[facility] ADMISSION DATE: SURGEON: SILVINO GALLOWAY DO DATE OF OPERATION: 12/22/2020 PROCEDURE PERFORMED: Right wrist ganglion excision and Dupuytren contracture release of the palm on the right hand. PREOPERATIVE DIAGNOSES: Ganglion cyst to the right wrist and Dupuytren's contracture of the right hand. POSTOPERATIVE DIAGNOSES: Ganglion cyst to the right wrist and Dupuytren's contracture of the right hand. INDICATIONS: Mr. Figueredo is an 85-year-old male who has had this ganglion cyst on the dorsal and radial aspect of his wrist for quite some time about a year or so, it has gotten bigger and really got annoying to him, tired of dealing with the pain. He also had a Dupuytren contracture in the line of the fourth ray of the palm of the hand. I told him I could do both, excised both and hopefully it would not return, but there was significant recurrence rate with both of these. He was at risk also to damage to nerves in the area, especially the radial sensory nerve in the dorsal wrist and the nerves with sensation to the fingers on the palmar side and damage the tendons as well and vessels. He was aware of all that as well as recurrence and infection and signed the consent. SURGEON: Silvino Galloway DO DESCRIPTION OF PROCEDURE: The patient was taken to the operative suite, laid in supine position, given general anesthetic, given 2 grams of Ancef preoperatively and LMA was placed. The right upper extremity was then prepped and draped in sterile fashion. A timeout was performed. Everyone was in agreeance with the correct side, site, patient and procedure. I then exsanguinated the right upper extremity with an Esmarch, tourniquet was inflated to 250 mmHg, it was up for 18 minutes. I then addressed the ganglion cyst first made a oblique type incision over the extensor pollicis longus tendon, where the cyst was, made careful dissection down to the cyst, it ruptured. I then cleaned it off. It was all encasing the EPL tendon. I then cleaned all the cyst off that I could in my view, I did not see it coming off the joint, but the actual tendon sheath and that was opened up and removed. I then went to the palm and made a Z type incision using the palmar creases, incorporating them over the contracture, peeled the skin off the contracture using a tangirnaq blade and then removed the Dupuytren's nodules and cords carefully. I then went down to the flexor tendons. I then removed also them. We then let the tourniquet down and coagulated any bleeding with a bipolar. Sherman Willis, certified ophthalmic surgical assistant then closed the palm with 4-0 nylon in a simple fashion as well as the ganglion cyst, closed it in a routine fashion. He was then dressed with Adaptic, 4 x 4s, cast padding, and Coban was lightly wrapped on the hand and wrist. He was awakened and taken to recovery in stable condition. BLOOD LOSS: Minimal. COMPLICATIONS: None. TRANSINT:[id number] Voice Confirmation ID: [id number] DOCUMENT ID: [id number] OPERATIVE REPORT [id number] LETHA FIGUEREDO MICHAEL D, DO at 1533 CC: [id number] DICTATION DATE: 12/22/20924 DIRECTOR OF GLOBAL MARKETING: 12/22/20 1505 [address] [facility] [address] [place] [address]
== END 2020-12-22 11:36 | disposition home or self-care (01) ==
LOC: D.OPS 07:10
PROVIDERS: Anesthesiology; ATTEND Orthopaedic Surgery
DX: M72.0 Palmar fascial fibromatosis [Dupuytren] (principal); M25.531 Pain in right wrist